=== PATIENT | female | born 1985 | race Caucasian/White ===

== ENCOUNTER → 2024-03-10 14:52 | Outpatient (REF) | payer BC, SELFPAY | LOC: HWRAD 14:52 | PROVIDERS: ATTENDING PHYSICIAN Obstetrics & Gynecology; FAMILY PHYSICIAN Family Medicine | DX: N92.0 Excessive and frequent menstruation with regular cycle (principal) | CPT/HCPCS: 76830; 76856 ==

== ENCOUNTER → 2025-02-09 13:57 | Outpatient (REF) | payer BC, SELFPAY | LOC: WDC 13:57 | PROVIDERS: ATTENDING PHYSICIAN Physician Assistant Medical | DX: Z12.31 Encounter for screening mammogram for malignant neoplasm of breast (principal) | CPT/HCPCS: 77063; 77067 ==